=== PATIENT | female | born 1990 | race Caucasian/White ===

== ENCOUNTER 2017-03-30 16:14 | Emergency (ER) | payer SELFPAY ==
[2017-03-30 16:53] VITALS: BP 99/60
[2017-03-30] MEDS ORDERED: Ondansetron 4 MG/2 ML SDV IVPUSH ONE (17:02)
[2017-03-30] MEDS ORDERED: Sodium Chloride 0.9% 1,000 ML IV ONE (17:02)
--- NOTE | 2017-03-30 17:03 | EDM.PDOC ---
ED HPI GENERAL MEDICAL PROBLEM - General Chief Complaint: Gastrointestinal Problem Stated Complaint: PT VOMIT AND 12WKS Time Seen by Provider: 03/30/17 17:02 Source of Information: Reports: Patient - History of Present Illness INITIAL COMMENTS - FREE TEXT/NARRATIVE: HISTORY AND PHYSICAL: History of present illness: [] 27-year-old female at approximately 12 weeks by uncertain dates Patient presents with LMP in the beginning of January uncertain date, she is receive Zofran to the walk-in clinic with benefit, chest 2 home tests positive Is scheduled for OB care tomorrow No fever chills sweats no chest pain shortness breath headache dizziness or palpitation bowel or urine symptoms No vaginal pain discharge fluid leakage or low back pain no spotting or bleeding Review of systems: As per history of present illness and below otherwise all systems reviewed and negative. Past medical history: As per history of present illness and as reviewed below otherwise noncontributory. Surgical history: As per history of present illness and as reviewed below otherwise noncontributory. Social history: No reported history of drug or alcohol abuse. Family history: As per history of present illness and as reviewed below otherwise noncontributory. Physical exam: HEENT: Atraumatic, normocephalic, pupils reactive, negative for conjunctival pallor or scleral icterus, mucous membranes moist, throat clear, neck supple, nontender, trachea midline. Lungs: Clear to auscultation, breath sounds equal bilaterally, chest nontender. Heart: S1S2, regular, negative for clicks, rubs, or JVD. Abdomen: Soft, nondistended, nontender. Negative for masses or hepatosplenomegaly. Negative for costovertebral tenderness. Pelvis: Stable nontender. Genitourinary: Deferred. Rectal: Deferred. Extremities: Atraumatic, negative for cords or calf pain. Neurovascular unremarkable. Neuro: Awake, alert, oriented. Cranial nerves II through XII unremarkable. Cerebellum unremarkable. Motor and sensory unremarkable throughout. Exam nonfocal. Diagnostics: [] UA, hCG Therapeutics: [] 1 L normal saline bolus Zofran 8 mg IV Zofran 8 mg ODT every 8 when necessary #30 no refill vitamins recommended Followup with OB as scheduled tomorrow morning Impression: [] What is Definitive disposition and diagnosis as appropriate pending reevaluation and review of above. Headache Pain Score (Numeric/FACES): 10 - Related Data Allergies Allergy/AdvReac Type Severity Reaction Status Date / Time No Known Allergies Allergy Verified 03/30/17 16:50 Home Meds: Home Meds . [No Known Home Meds] 03/30/17 [History] Past Medical History - Past Health History Medical/Surgical History: Denies Medical/Surgical History Social & Family History - Family History Family Medical History: Noncontributory - Tobacco Use Smoking Status *Q: Former Smoker Used Tobacco, but Quit: No - Caffeine Use Caffeine Use: Reports: None - Recreational Drug Use Recreational Drug Use: No ED ROS GENERAL - Review of Systems Review Of Systems: ROS reveals no pertinent complaints other than HPI. ED EXAM, GENERAL - Physical Exam Exam: See Below Course - Vital Signs Last Recorded V/S: Last Vital Signs Temp 36.6 C 03/30/17 16:50 Pulse 101 H 03/30/17 16:50 Resp 16 03/30/17 16:50 BP 99/60 03/30/17 16:50 Pulse Ox 99 03/30/17 16:50 - Orders/Labs/Meds Orders: Active Orders 24 hr Category Date Time Status Sodium Chloride 0.9% [Normal Saline] 1,000 ml Med 03/30/17 17:02 Active IV STAT Medication Orders Sodium Chloride (Normal Saline) 1,000 mls @ 999 mls/hr IV STAT ONE Stop: 03/30/17 18:02 Last Admin: 03/30/17 17:53 Dose: 999 mls/hr Labs: Laboratory Tests 03/30/17 03/30/17 Range/Units 17:47 17:47 Urine Color YELLOW Urine Appearance CLOUDY Urine pH 6.5 (5.0-8.0) Ur Specific [place] 1.025 (1.001-1.035) Urine Protein NEGATIVE (NEGATIVE) mg/dL Urine Glucose (UA) NEGATIVE (NEGATIVE) mg/dL Urine Ketones NEGATIVE (NEGATIVE) mg/dL Urine Occult Blood TRACE-INTACT (NEGATIVE) Urine Nitrite NEGATIVE (NEGATIVE) Urine Bilirubin NEGATIVE (NEGATIVE) Urine Urobilinogen 1.0 (<2.0) EU/dL Ur Leukocyte Esterase MODERATE (NEGATIVE) Urine RBC 0-3 (0-2/HPF) Urine WBC 50-75 (0-5/HPF) Ur Epithelial Cells MODERATE (NONE-FEW) Urine Bacteria 1+ H (NEGATIVE) Urine Mucus LIGHT (NONE-MOD) Urine HCG, Qual POSITIVE (NEGATIVE) Meds: Medications Generic Name Dose Route Start Last Admin Trade Name Freq PRN Reason Stop Dose Admin Sodium Chloride 1,000 mls @ 999 mls/hr 03/30/17 17:02 03/30/17 17:53 Normal Saline IV 03/30/17 18:02 999 mls/hr STAT ONE Administration Discontinued Medications Generic Name Dose Route Start Last Admin Trade Name Freq PRN Reason Stop Dose Admin Ondansetron HCl 8 mg 03/30/17 17:02 03/30/17 17:54 Zofran IVPUSH 03/30/17 17:03 8 mg ONETIME ONE Administration Departure - Departure Time of Disposition: 18:00 Disposition: Home, Self-Care 01 Condition: good Clinical Impression: Vomiting of - Discharge Information Referrals: PCP,None [Primary Care Provider] - Forms: ED Department Discharge - My Orders Last 24 Hours: My Active Orders 03/30/17 17:02 Sodium Chloride 0.9% [Normal Saline] 1,000 ml IV STAT - Assessment/Plan Last 24 Hours: My Active Orders 03/30/17 17:02 Sodium Chloride 0.9% [Normal Saline] 1,000 ml IV STAT
== END 2017-03-30 19:08 | disposition home or self-care (01) ==
LOC: MW.ED 16:14
DX: O21.9 Vomiting of pregnancy, unspecified (principal); Z87.891 Personal history of nicotine dependence; Z3A.12 12 weeks gestation of pregnancy
CPT/HCPCS: 81001; 81025; 96361; 96374; 99283; J2405; J7040; 99284

== ENCOUNTER 2017-09-16 09:15 | Inpatient (IN) | payer OTHER, SELFPAY ==
[2017-09-16] MEDS: Lactated Ringers 1,000 ML IV SCH ×3 (09:15→17:45)
[2017-09-16] MEDS ORDERED: Nalbuphine 10 MG/1 ML Vial IVPUSH PRN (09:17)
[2017-09-16] MEDS ORDERED: Ondansetron 4 MG/2 ML SDV IV PRN (09:17)
[2017-09-16] MEDS ORDERED: Sodium Chloride 0.9% 2.5 ML Syringe FLUSH PRN (09:17)
[2017-09-16] MEDS ORDERED: Lidocaine 1% 50 ML MDV INJECT PRN (09:17)
[2017-09-16] MEDS ORDERED: Misoprostol 200 MCG Tab PO PRN (09:17)
[2017-09-16] MEDS ORDERED: Water For Irrigation,Sterile 1,000 ML Container IRR PRN (09:17)
[2017-09-16] MEDS ORDERED: Methylergonovine 0.2 MG/1 ML Amp IM PRN (09:17)
[2017-09-16] MEDS ORDERED: Sodium Chloride 0.9% 10 ML Syringe FLUSH PRN (09:17)
[2017-09-16] MEDS ORDERED: Carboprost Tromethamine 250 MCG/1 ML Amp IM PRN (09:17)
--- NOTE | 2017-09-16 09:27 | PCM.LDHP ---
L&D History of Present Illness - General Date of Service: 09/16/17 Admit Problem/Dx: Patient Status Order with Admit Dx/Problem 09/16/17 09:18 Patient Status [ADT] Routine Admission Diagnosis/Problem Admission Diagnosis/Problem 09/16/17 09:22 27 yo EDC 10/18/2017 35 3/7wks A+. RI, GBS unkwn, comes due to regular uterine contractions, SVE per RN 3-90/-1 BBOW. Source of Information: Patient History Limitations: Reports: No Limitations - History of Present Illness Introduction:: 27 yo EDC 10/18/2017 35 3/7wks A+. RI, GBS unkwn, comes due to regular uterine contractions, SVE per RN 3-90/-1 BBOW. Timing/Duration: Reports: minutes: Location, : Reports: Abdomen Severity: Severe Improves with: Reports: None Worsens with: Reports: None Associated Symptoms: Reports: N - Related Data Allergies/Adverse Reactions: Allergies Allergy/AdvReac Type Severity Reaction Status Date / Time No Known Allergies Allergy Verified 03/30/17 16:50 Home Medications: Home Meds . [No Known Home Meds] 03/30/17 [History] Past Medical History - Past Health History Medical/Surgical History: Denies Medical/Surgical History Social & Family History - Family History Family Medical History: Noncontributory - Tobacco Use Smoking Status *Q: Former Smoker Used Tobacco, but Quit: No - Caffeine Use Caffeine Use: Reports: None - Recreational Drug Use Recreational Drug Use: No H&P Review of Systems - Review of Systems: Review Of Systems: See Below General: Reports: No Symptoms HEENT: Reports: No Symptoms Pulmonary: Reports: No Symptoms Cardiovascular: Reports: No Symptoms Gastrointestinal: Reports: No Symptoms Genitourinary: Reports: No Symptoms Musculoskeletal: Reports: No Symptoms Skin: Reports: No Symptoms Psychiatric: Reports: No Symptoms Neurological: Reports: No Symptoms Hematologic/Lymphatic: Reports: No Symptoms Immunologic: Reports: No Symptoms L&D Exam - Exam Exam: See Below - Vital Signs Weight: 52.617 kg - OB Specific Contraction Intensity: Moderate to Strong Movement: Active Heart Tones: Present Heart Tones per Min: 140 Heart Rate (FHR) Variability: Moderate (6-25 bmp) Presentation: Vertex Estimated Weight: 3000 - Knight Score Knight Score Cervix Position: Anterior Knight Score Consistency: Soft Knight Score Effacement: >80% Knight Score Dilation: 3-4 cm Knight Score Infant's Station: -1 ,0 Knight Score Total: 11 - Exam General: Alert, Oriented, Cooperative HEENT: EACs Clear, EOMI, Hearing Intact, Mucosa Moist & [place] Lungs: Clear to Auscultation, Normal Respiratory Effort Cardiovascular: Regular Rate, Regular Rhythm GI/Abdominal Exam: Soft, Non-Tender, No Organomegaly, No Distention, No Abnormal Bruit, No Mass, Pelvis Stable Rectal Exam: Deferred Genitourinary: Normal bimanual exam, Cervical dilitation Back Exam: Full Range of Motion Extremities: Normal Inspection, Normal Range of Motion, Non-Tender, No Pedal Edema, Normal Capillary Refill Skin: Warm, Dry, Intact Neurological: Cranial Nerves Intact, Reflexes Equal Bilateral, Normal Speech, Normal Tone, Sensation Intact Psychiatric: Alert, Normal Affect, Normal Mood - Problem List (1) Supervision of normal IUP (intrauterine ) in primigravida SNOMED Code(s): 67484496, 482633169, 104852031 ICD Code: Z34.00 - ENCNTR FOR SUPRVSN OF NORMAL FIRST , UNSP TRIMESTER Status: Acute Priority: High Current Visit: Yes Qualifiers: Trimester: third trimester Qualified Code(s): Z34.03 - Encounter for supervision of normal first , third trimester (2) labor in third trimester SNOMED Code(s): 0298925 ICD Code: O60.03 - LABOR WITHOUT DELIVERY, THIRD TRIMESTER Status: Acute Priority: High Current Visit: Yes Qualifiers: labor delivery status: without delivery Qualified Code(s): O60.03 - labor without delivery, third trimester Problem List Initiated/Reviewed/Updated: Yes Orders Last 24hrs: Active Orders 24 hr Category Date Time Status Patient Status [ADT] Routine ADT 09/16/17 09:18 Ordered Heart Tones [RC] INTERMITTENT Care 09/16/17 09:18 Ordered Non Stress Test [RC] PER UNIT ROUTINE Care 09/16/17 09:18 Ordered May Shower [RC] ASDIRECTED Care 09/16/17 09:18 Ordered Notify Provider [RC] PRN Care 09/16/17 09:18 Ordered Up ad Vania [RC] ASDIRECTED Care 09/16/17 09:18 Ordered Vaginal Exam [RC] PRN Care 09/16/17 09:18 Ordered Vital Signs [RC] PER UNIT ROUTINE Care 09/16/17 09:18 Ordered Regular Diet [DIET] Diet 09/16/17 Lunch Ordered CBC W/O DIFF,HEMOGRAM [HEME] Routine Lab 09/16/17 09:18 Ordered TYPE AND SCREEN [BBK] Routine Lab 09/16/17 09:18 Ordered Acetaminophen [Tylenol] Med 09/16/17 09:17 Ordered 650 mg PO Q4H PRN Ampicillin 1 gm Med 09/16/17 09:30 Ordered Sodium Chloride 0.9% [Normal Saline] 50 ml IV Q4H Ampicillin 2 gm Med 09/16/17 09:17 Ordered Sodium Chloride 0.9% [Normal Saline] 100 ml IV ONETIME Carboprost Tromethamine [Hemabate DS] Med 09/16/17 09:17 Ordered 250 mcg IM ASDIRECTED PRN Lactated Ringers @ 150 MLS/HR(1000ml) Med 09/16/17 09:30 Ordered Lactated Ringers [Ringers, Lactated] 1,000 ml IV ASDIRECTED Lidocaine 1% [Xylocaine 1%] Med 09/16/17 09:17 Ordered 50 ml INJECT .ONCE PRN Methylergonovine [Methergine] Med 09/16/17 09:17 Ordered 0.2 mg IM ASDIRECTED PRN Misoprostol [Cytotec] Med 09/16/17 09:17 Ordered 200 mcg PO .ONCE PRN Nalbuphine [Nubain] Med 09/16/17 09:17 Ordered 10 mg IVPUSH Q1H PRN Ondansetron [Zofran] Med 09/16/17 09:17 Ordered 4 mg IV Q4H PRN Oxytocin/0.9 % Sodium Chloride [Oxytocin 30 Unit/500 ML Med 09/16/17 09:30 Ordered -NS] 30 unit in 500 ml IV TITRATE Sodium Chloride 0.9% [Saline Flush] Med 09/16/17 09:17 Ordered 10 ml FLUSH ASDIRECTED PRN Sodium Chloride 0.9% [Saline Flush] Med 09/16/17 09:17 Ordered 2.5 ml FLUSH ASDIRECTED PRN Water For Irrigation,Sterile [Sterile Water for Med 09/16/17 09:17 Ordered Irrigation] 1,000 ml IRR ASDIRECTED PRN Scalp Electrode [WOMSER] Per Unit Routine Oth 09/16/17 09:18 Ordered Peripheral IV Insertion Adult [OM.PC] Routine Oth 09/16/17 09:18 Ordered Resuscitation Status Routine Resus Stat 09/16/17 09:17 Ordered Assessment/Plan Comment:: Labor A: 27 yo EDC 10/18/2017 35 3/7wks A+. RI, GBS unkwn, comes due to regular uterine contractions, SVE per RN 3-4/90/-1 BBOW. P: Admit to L&D, GBS unwkn and will start antibiotics, may be out of bed if infant strip good, anticipate . Dr Ogden updated on pt status.
[2017-09-16] MEDS ORDERED: Oxytocin/0.9 % Sodium Chloride 30 UNIT/500 ML BAG IV SCH (09:30)
[2017-09-16] MEDS ORDERED: Ampicillin 2 GM in Sodium Chloride 0.9% 100 ML IV ONE (09:30)
[2017-09-16] MEDS: Acetaminophen 325 MG Tab PO PRN (13:08)
[2017-09-16] MEDS: Ampicillin 1 GM in Sodium Chloride 0.9% 50 ML IV SCH ×3 (13:39→21:37)
[2017-09-17] MEDS: Lactated Ringers 1,000 ML IV SCH ×3 (00:50→07:15)
[2017-09-17] MEDS ORDERED: Ropivacaine 0.2% 2 MG/ML 20 ML SDV ONE (01:09)
[2017-09-17] MEDS ORDERED: fentaNYL 100 MCG/2 ML SDV ONE (01:09)
[2017-09-17] MEDS ORDERED: Ropivacaine HCl/PF 100 ML ONE (01:09)
--- NOTE | 2017-09-17 01:42 | PCM.PREANE ---
Preanesthetic Assessment - Anesthesia/Transfusion/Family Hx Anesthesia History: No Prior Anesthesia Family History of Anesthesia Reaction: No - Review of Systems Other: Reports: None - Physical Assessment Height: 4 ft 10 in Weight: 52.617 kg ASA Class: 2 Mental Status: Alert & Oriented x3 Airway Class: Mallampati = 1 Dentition: Reports: Normal Dentition Thyro-Mental Finger Breadths: 3 Mouth Opening Finger Breadths: 3 ROM/Head Extension: Full - Lab Values: Laboratory Last Values WBC 8.20 K/uL (4.0-11.0) 09/16/17 09:23 RBC 3.53 M/uL (4.30-5.90) L 09/16/17 09:23 Hgb 10.5 g/dL (12.0-16.0) L 09/16/17 09:23 Hct 31.2 % (36.0-46.0) L 09/16/17 09:23 MCV 88.4 fL (80.0-98.0) 09/16/17 09:23 MCH 29.7 pg (27.0-32.0) 09/16/17 09:23 MCHC 33.7 g/dL (31.0-37.0) 09/16/17 09:23 RDW Std Deviation 41.6 fl (28.0-62.0) 09/16/17 09:23 RDW Coeff of Shayy 13 % (11.0-15.0) 09/16/17 09:23 Plt Count 268 K/uL (150-400) 09/16/17 09:23 MPV 9.30 fL (7.40-12.00) 09/16/17 09:23 Nucleated RBC % 0.0 /100WBC 09/16/17 09:23 Nucleated RBCs # 0 K/uL 09/16/17 09:23 Blood Type A POSITIVE 09/16/17 09:23 Antibody Screen NEGATIVE 09/16/17 09:23 - Allergies Allergies/Adverse Reactions: Allergies Allergy/AdvReac Type Severity Reaction Status Date / Time No Known Allergies Allergy Verified 03/30/17 16:50 - Blood Blood Available: Yes Product(s) Available: PRBC - Acknowledgements Anesthesia Type Planned: Epidural Pt an Appropriate Candidate for the Planned Anesthesia: Yes Alternatives and Risks of Anesthesia Discussed w Pt/Guardian: Yes Pt/Guardian Understands and Agrees with Anesthesia Plan: Yes PreAnesthesia Questionnaire - Past Health History Medical/Surgical History: Denies Medical/Surgical History - SUBSTANCE USE Smoking Status *Q: Former Smoker Tobacco Use Within Last Twelve Months: Cigarettes Recreational Drug Use History: No - HOME MEDS Home Medications: Home Meds . [No Known Home Meds] 03/30/17 [History] - CURRENT (IN HOUSE) MEDS Current Meds: Current Medications Acetaminophen (Tylenol) 650 mg PO Q4H PRN PRN Reason: mild pain and fever Last Admin: 09/16/17 13:08 Dose: 650 mg Carboprost Tromethamine (Hemabate Ds) 250 mcg IM ASDIRECTED PRN PRN Reason: Post Hemorrhage Ampicillin Sodium 1 gm/ Sodium (Chloride) 50 mls @ 100 mls/hr IV Q4H [facility] Last Admin: 09/16/17 21:37 Dose: 100 mls/hr Lactated Ringer's (Ringers, Lactated) 1,000 mls @ 150 mls/hr IV ASDIRECTED [facility] Last Admin: 09/16/17 17:45 Dose: 150 mls/hr Oxytocin/Sodium Chloride (Oxytocin 30 Unit/500 Ml-Ns) 30 unit in 500 mls @ 500 mls/hr IV TITRATE [facility] Lidocaine HCl (Xylocaine 1%) 50 ml INJECT .ONCE PRN PRN Reason: Laceration repair Methylergonovine Maleate (Methergine) 0.2 mg IM ASDIRECTED PRN PRN Reason: Post Hemorrhage Misoprostol (Cytotec) 200 mcg PO .ONCE PRN PRN Reason: Post Hemorrhage Nalbuphine HCl (Nubain) 10 mg IVPUSH Q1H PRN PRN Reason: Pain (severe 7-10) Last Admin: 09/16/17 10:57 Dose: 10 mg Ondansetron HCl (Zofran) 4 mg IV Q4H PRN PRN Reason: Nausea/Vomiting Last Admin: 09/16/17 17:41 Dose: 4 mg Sodium Chloride (Saline Flush) 10 ml FLUSH ASDIRECTED PRN PRN Reason: Keep Vein Open Sodium Chloride (Saline Flush) 2.5 ml FLUSH ASDIRECTED PRN PRN Reason: Keep Vein Open Sterile Water (Sterile Water For Irrigation) 1,000 ml IRR ASDIRECTED PRN PRN Reason: delivery Discontinued Medications Fentanyl (Sublimaze) Confirm Administered Dose 200 mcg .ROUTE .STK-MED ONE Stop: 09/17/17 01:10 Ampicillin Sodium 2 gm/ Sodium (Chloride) 100 mls @ 200 mls/hr IV ONETIME ONE Stop: 09/16/17 09:59 Last Admin: 09/16/17 09:30 Dose: 200 mls/hr Ropivacaine (Naropin 0.2%) Confirm Administered Dose 100 mls @ as directed .ROUTE .STK-MED ONE Stop: 09/17/17 01:10 Ropivacaine (Naropin 0.2%) Confirm Administered Dose 20 ml .ROUTE .STK-MED ONE Stop: 09/17/17 01:10
[2017-09-17] MEDS: Ampicillin 1 GM in Sodium Chloride 0.9% 50 ML IV SCH ×3 (01:46→09:30)
[2017-09-17] MEDS: Acetaminophen 325 MG Tab PO PRN (05:58)
[2017-09-17] MEDS ORDERED: Bisacodyl 10 MG Supp RECTAL PRN (10:10)
[2017-09-17] MEDS ORDERED: Benzocaine/Menthol 20%-0.5% Spray 78 GM Cannister TOP PRN (10:10)
[2017-09-17] MEDS ORDERED: Lanolin 100% Cream 7 GM Tube TOP PRN (10:10)
[2017-09-17] MEDS ORDERED: Ibuprofen 400 MG Tab PO PRN (10:10)
[2017-09-17] MEDS ORDERED: Acetaminophen 500 MG Tab PO PRN ×2 (10:10)
[2017-09-17] MEDS ORDERED: Witch Hazel Medicated Pads 40/Jar TOP PRN (10:10)
--- NOTE | 2017-09-17 10:16 | PCM.DEL ---
L & D Note - General Info Date of Service: 09/17/17 Mother's Due Date: 10/18/17 - Delivery Note Labor: Spontaneous Delivery Outcome: Livebirth Infant Delivery Method: Spontaneous Vaginal Delivery-Single Infant Delivery Mode: Spontaneous Presentation: Vertex Nuchal Cord: None Anesthesia Type: None Amniotic Fluid Description: Clear Episiotomy Type: None Laceration: None Placenta: Intact, Spontaneous Cord: 3 Vessels Estimated Blood Loss: 200 Resuscitation Needed: No Provider: Rosita Rhodes (At delivery) Score 1 min: 8 Score 5 min: 9 Second Stage Interventions: Reports: Pushing, Pulls Own Legs Back Delivery Comments (Free Text/Narrative):: of viable male over intact perineum at 35 4/7wks due to spont labor. Head delivered after much pushing, shoulders and body followed easily. to mother abdomen with Dr Rhodes at for evaluation, CC and cut and to warmer for further evaluation. Cord blood collected. Placenta delivered grossly intact with 3VC, Inspection noted intact perineum and small bilateral sidewall "skid noriega". Homeostatic and no repair needed. Bimanual normal. EBL 200cc, APGARS 8/9, Weight 4lb 14oz. Mother and left in stable condition for recovery. - General Info Date of Service: 09/17/17 Admission Dx/Problem (Free Text): Patient Status Order with Admit Dx/Problem 09/16/17 09:18 Patient Status [ADT] Routine Admission Diagnosis/Problem Admission Diagnosis/Problem 09/16/17 09:22 27 yo EDC 10/18/2017 35 3/7wks A+. RI, GBS unkwn, comes due to regular uterine contractions, SVE per RN 3-4/90/-1 BBOW. Functional Status: Reports: Pain Controlled - Review of Systems General: Reports: No Symptoms HEENT: Reports: No Symptoms Pulmonary: Reports: No Symptoms Cardiovascular: Reports: No Symptoms Gastrointestinal: Reports: No Symptoms Genitourinary: Reports: No Symptoms Musculoskeletal: Reports: No Symptoms Skin: Reports: No Symptoms Neurological: Reports: No Symptoms Psychiatric: Reports: No Symptoms - Patient Data Weight - Most Recent: 52.617 kg Lab Results Last 24 Hours: Laboratory Results - last 24 hr 09/16/17 Range/Units 09:23 Blood Type A POSITIVE Antibody Screen NEGATIVE Med Orders - Current: Current Medications Acetaminophen (Tylenol Extra Strength) 500 mg PO Q4H PRN PRN Reason: Pain Acetaminophen (Tylenol Extra Strength) 1,000 mg PO Q4H PRN PRN Reason: Pain Benzocaine/Menthol (Dermoplast Pain Relief 20%-0.5% [place]) 78 gm TOP ASDIRECTED PRN PRN Reason: Perineal Comfort Measure Bisacodyl (Dulcolax) 10 mg RECTAL .ONCE PRN PRN Reason: Constipation Docusate Sodium (Colace) 100 mg PO BID PRN PRN Reason: Constipation Emollient Ointment (Lansinoh Hpa) 0 gm TOP ASDIRECTED PRN PRN Reason: Sore Nipples Ibuprofen (Motrin) 400 mg PO Q4H PRN PRN Reason: Pain Ibuprofen (Motrin) 800 mg PO Q6H PRN PRN Reason: Pain Oxycodone HCl (Oxycodone) 5 mg PO Q2H PRN PRN Reason: Pain Discontinued Medications Acetaminophen (Tylenol) 650 mg PO Q4H PRN PRN Reason: mild pain and fever Last Admin: 09/17/17 05:58 Dose: 650 mg Carboprost Tromethamine (Hemabate Ds) 250 mcg IM ASDIRECTED PRN PRN Reason: Post Hemorrhage Fentanyl (Sublimaze) Confirm Administered Dose 200 mcg .ROUTE .STK-MED ONE Stop: 09/17/17 01:10 Ampicillin Sodium 1 gm/ Sodium (Chloride) 50 mls @ 100 mls/hr IV Q4H [facility] Last Admin: 09/17/17 09:30 Dose: 100 mls/hr Ampicillin Sodium 2 gm/ Sodium (Chloride) 100 mls @ 200 mls/hr IV ONETIME ONE Stop: 09/16/17 09:59 Last Admin: 09/16/17 09:30 Dose: 200 mls/hr Lactated Ringer's (Ringers, Lactated) 1,000 mls @ 150 mls/hr IV ASDIRECTED [facility] Last Admin: 09/17/17 07:15 Dose: 150 mls/hr Oxytocin/Sodium Chloride (Oxytocin 30 Unit/500 Ml-Ns) 30 unit in 500 mls @ 500 mls/hr IV TITRATE [facility] Ropivacaine (Naropin 0.2%) Confirm Administered Dose 100 mls @ as directed .ROUTE .STK-MED ONE Stop: 09/17/17 01:10 Lidocaine HCl (Xylocaine 1%) 50 ml INJECT .ONCE PRN PRN Reason: Laceration repair Methylergonovine Maleate (Methergine) 0.2 mg IM ASDIRECTED PRN PRN Reason: Post Hemorrhage Misoprostol (Cytotec) 200 mcg PO .ONCE PRN PRN Reason: Post Hemorrhage Nalbuphine HCl (Nubain) 10 mg IVPUSH Q1H PRN PRN Reason: Pain (severe 7-10) Last Admin: 09/16/17 10:57 Dose: 10 mg Ondansetron HCl (Zofran) 4 mg IV Q4H PRN PRN Reason: Nausea/Vomiting Last Admin: 09/16/17 17:41 Dose: 4 mg Ropivacaine (Naropin 0.2%) Confirm Administered Dose 20 ml .ROUTE .[employer] ONE Stop: 09/17/17 01:10 Sodium Chloride (Saline Flush) 10 ml FLUSH ASDIRECTED PRN PRN Reason: Keep Vein Open Sodium Chloride (Saline Flush) 2.5 ml FLUSH ASDIRECTED PRN PRN Reason: Keep Vein Open Sterile Water (Sterile Water For Irrigation) 1,000 ml IRR ASDIRECTED PRN PRN Reason: delivery - Exam General: Alert, Oriented, Cooperative, No Acute Distress Lungs: Normal Respiratory Effort GI/Abdominal Exam: Soft, Non-Tender (Female) Exam: Normal External Exam, Normal Bimanual Exam, Vaginal Bleeding Back Exam: Full Range of Motion Extremities: Normal Range of Motion, Non-Tender, No Pedal Edema, Normal Capillary Refill Skin: Warm, Dry, Intact Wound/Incisions: Healing Well Neurological: No New Focal Deficit, Normal Speech, Normal Tone Psy/Mental Status: Alert, Normal Affect, Normal Mood - Problem List & Annotations (1) Supervision of normal IUP (intrauterine ) in primigravida SNOMED Code(s): 75568776, 088758722, 911161232 Code(s): Z34.00 - ENCNTR FOR SUPRVSN OF NORMAL FIRST , UNSP TRIMESTER Status: Acute Priority: High Current Visit: Yes Qualifiers: Trimester: third trimester Qualified Code(s): Z34.03 - Encounter for supervision of normal first , third trimester (2) labor in third trimester SNOMED Code(s): 8681981 Code(s): O60.03 - LABOR WITHOUT DELIVERY, THIRD TRIMESTER Status: Acute Priority: High Current Visit: Yes Qualifiers: labor delivery status: without delivery Qualified Code(s): O60.03 - labor without delivery, third trimester (3) (normal spontaneous vaginal delivery) SNOMED Code(s): 00137888 Code(s): O80 - ENCOUNTER FOR FULL-TERM UNCOMPLICATED DELIVERY Status: Acute Priority: High Current Visit: Yes - Problem List Review Problem List Initiated/Reviewed/Updated: Yes - My Orders Last 24 Hours: My Active Orders 09/16/17 09:18 Heart Tones [RC] INTERMITTENT Non Stress Test [RC] PER UNIT ROUTINE May Shower [RC] ASDIRECTED Notify Provider [RC] PRN Up ad Vania [RC] ASDIRECTED Vaginal Exam [RC] PRN Vital Signs [RC] PER UNIT ROUTINE 09/17/17 10:10 May Shower [RC] ASDIRECTED Up ad Vania [RC] ASDIRECTED Vital Signs [RC] PER UNIT ROUTINE Acetaminophen [Tylenol Extra Strength] 1,000 mg PO Q4H PRN Acetaminophen [Tylenol Extra Strength] 500 mg PO Q4H PRN Benzocaine/Menthol [Dermoplast Pain Relief 20%-0.5% [place]] 78 gm TOP ASDIRECTED PRN Bisacodyl [Dulcolax] 10 mg RECTAL .ONCE PRN Docusate Sodium [Colace] 100 mg PO BID PRN Ibuprofen [Motrin] 400 mg PO Q4H PRN Ibuprofen [Motrin] 800 mg PO Q6H PRN Lanolin [Lansinoh HPA] See Dose Instructions TOP ASDIRECTED PRN Witch Naty [Tucks] 1 pad TOP ASDIRECTED PRN oxyCODONE 5 mg PO Q2H PRN Assess Lochia [WOMSER] Per Unit Routine Assess Uterine Involution [WOMSER] Per Unit Routine Peripheral IV Discontinue [OM.PC] Routine Resuscitation Status Routine 09/17/17 10:11 Patient Status [ADT] Routine 09/17/17 Lunch Regular Diet [DIET] - Assessment Assessment:: of viable male over intact perineum. EBL 200cc. APGARS 8/9, Wt: 4lb 14oz. Mother and baby stable - Plan Plan:: Labor A: 27 yo EDC 10/18/2017 35 3/7wks A+. RI, GBS unkwn, comes due to regular uterine contractions, SVE per RN 3-4/90/-1 BBOW. P: Admit to L&D, GBS unwkn and will start antibiotics, may be out of bed if infant strip good, anticipate . Dr Ogden updated on pt status. Delivery: P: routine pp plan of care
[2017-09-17] MEDS: Ibuprofen 800 MG Tab PO PRN ×2 (13:03→19:54)
--- NOTE | 2017-09-17 13:56 | PCM48HPAN ---
Post Anesthesia Note - EVALUATION WITHIN 48HRS OF ANESTHETIC Vital Signs in Normal Range: Yes Patient Participated in Evaluation: Yes Respiratory Function Stable: Yes Airway Patent: Yes Cardiovascular Function Stable: Yes Hydration Status Stable: Yes Pain Control Satisfactory: Yes Nausea and Vomiting Control Satisfactory: Yes Mental Status Recovered: Yes
[2017-09-17] MEDS: oxyCODONE 5 MG Tab PO PRN ×2 (19:53→23:14)
[2017-09-17] MEDS: Docusate Sodium 100 MG Cap PO PRN (19:54)
[2017-09-18] MEDS: oxyCODONE 5 MG Tab PO PRN ×4 (03:26→23:45)
--- NOTE | 2017-09-18 13:10 | PCM.PNPP ---
- General Info Date of Service: 09/18/17 Admission Dx/Problem (Free Text): Patient Status Order with Admit Dx/Problem 09/16/17 09:18 Patient Status [ADT] Routine Admission Diagnosis/Problem Admission Diagnosis/Problem 09/16/17 09:22 27 yo EDC 10/18/2017 35 3/7wks A+. RI, GBS unkwn, comes due to regular uterine contractions, SVE per RN 3-4/90/-1 BBOW. Functional Status: Reports: Pain Controlled, Tolerating Diet, Ambulating, Urinating - Review of Systems General: Reports: No Symptoms HEENT: Reports: No Symptoms Pulmonary: Reports: No Symptoms Cardiovascular: Reports: No Symptoms Gastrointestinal: Reports: No Symptoms Genitourinary: Reports: No Symptoms Musculoskeletal: Reports: No Symptoms Skin: Reports: No Symptoms Neurological: Reports: No Symptoms Psychiatric: Reports: No Symptoms - Patient Data Vital Signs - Most Recent: Last Vital Signs Temp 36.9 C 09/18/17 09:00 Pulse 72 09/18/17 09:00 Resp 16 09/18/17 09:00 BP 122/70 09/18/17 09:00 Pulse Ox 100 09/18/17 09:00 Weight - Most Recent: 52.617 kg Med Orders - Current: Current Medications Acetaminophen (Tylenol Extra Strength) 500 mg PO Q4H PRN PRN Reason: Pain Acetaminophen (Tylenol Extra Strength) 1,000 mg PO Q4H PRN PRN Reason: Pain Benzocaine/Menthol (Dermoplast Pain Relief 20%-0.5% [place]) 78 gm TOP ASDIRECTED PRN PRN Reason: Perineal Comfort Measure Last Admin: 09/17/17 13:18 Dose: 1 canister Bisacodyl (Dulcolax) 10 mg RECTAL .ONCE PRN PRN Reason: Constipation Docusate Sodium (Colace) 100 mg PO BID PRN PRN Reason: Constipation Last Admin: 09/17/17 19:54 Dose: 100 mg Emollient Ointment (Lansinoh Hpa) 0 gm TOP ASDIRECTED PRN PRN Reason: Sore Nipples Last Admin: 09/17/17 19:55 Dose: 1 applicful Ibuprofen (Motrin) 400 mg PO Q4H PRN PRN Reason: Pain Ibuprofen (Motrin) 800 mg PO Q6H PRN PRN Reason: Pain Last Admin: 09/17/17 19:54 Dose: 800 mg Oxycodone HCl (Oxycodone) 5 mg PO Q2H PRN PRN Reason: Pain Last Admin: 09/18/17 11:59 Dose: 5 mg Witch Naty (Tucks) 1 pad TOP ASDIRECTED PRN PRN Reason: comfort care Last Admin: 09/17/17 13:18 Dose: 1 tub Discontinued Medications Acetaminophen (Tylenol) 650 mg PO Q4H PRN PRN Reason: mild pain and fever Last Admin: 09/17/17 05:58 Dose: 650 mg Carboprost Tromethamine (Hemabate Ds) 250 mcg IM ASDIRECTED PRN PRN Reason: Post Hemorrhage Fentanyl (Sublimaze) Confirm Administered Dose 200 mcg .ROUTE .STK-MED ONE Stop: 09/17/17 01:10 Ampicillin Sodium 1 gm/ Sodium (Chloride) 50 mls @ 100 mls/hr IV Q4H [facility] Last Admin: 09/17/17 09:30 Dose: 100 mls/hr Ampicillin Sodium 2 gm/ Sodium (Chloride) 100 mls @ 200 mls/hr IV ONETIME ONE Stop: 09/16/17 09:59 Last Admin: 09/16/17 09:30 Dose: 200 mls/hr Lactated Ringer's (Ringers, Lactated) 1,000 mls @ 150 mls/hr IV ASDIRECTED [facility] Last Admin: 09/17/17 07:15 Dose: 150 mls/hr Oxytocin/Sodium Chloride (Oxytocin 30 Unit/500 Ml-Ns) 30 unit in 500 mls @ 500 mls/hr IV TITRATE [facility] Last Admin: 09/17/17 09:59 Dose: 500 mls/hr Ropivacaine (Naropin 0.2%) Confirm Administered Dose 100 mls @ as directed .ROUTE .STK-MED ONE Stop: 09/17/17 01:10 Lidocaine HCl (Xylocaine 1%) 50 ml INJECT .ONCE PRN PRN Reason: Laceration repair Methylergonovine Maleate (Methergine) 0.2 mg IM ASDIRECTED PRN PRN Reason: Post Hemorrhage Misoprostol (Cytotec) 200 mcg PO .ONCE PRN PRN Reason: Post Hemorrhage Nalbuphine HCl (Nubain) 10 mg IVPUSH Q1H PRN PRN Reason: Pain (severe 7-10) Last Admin: 09/16/17 10:57 Dose: 10 mg Ondansetron HCl (Zofran) 4 mg IV Q4H PRN PRN Reason: Nausea/Vomiting Last Admin: 09/16/17 17:41 Dose: 4 mg Ropivacaine (Naropin 0.2%) Confirm Administered Dose [address]-MED ONE Stop: 09/17/17 01:10 Sodium Chloride (Saline Flush) 10 ml FLUSH ASDIRECTED PRN PRN Reason: Keep Vein Open Sodium Chloride (Saline Flush) 2.5 ml FLUSH ASDIRECTED PRN PRN Reason: Keep Vein Open Sterile Water (Sterile Water For Irrigation) 1,000 ml IRR ASDIRECTED PRN PRN Reason: delivery - Infant Interaction Infant Disposition, : to Nursery Infant Interaction: To Nursery to Visit Infant Infant Feeding: Breastfed Infant; Nursed Well Support Person: - Recovery Exam Fundal Tone: Firm Fundal Level: 1 Fingerbreadths Below Umbilicus Fundal Placement: Midline Lochia Amount: Scant Lochia Color: Rubra/Red Perineum Description: Intact, Minimal Bruising/Swelling Bladder Status: Voiding - Exam General: Alert, Oriented, Cooperative, No Acute Distress Lungs: Normal Respiratory Effort GI/Abdominal Exam: Soft, Non-Tender Extremities: Normal Range of Motion, Non-Tender, No Pedal Edema, Normal Capillary Refill Skin: Warm, Dry, Intact Wound/Incisions: Healing Well Neurological: No New Focal Deficit, Normal Gait, Normal Speech, Normal Tone Psy/Mental Status: Alert, Normal Affect, Normal Mood - Problem List & Annotations (1) Supervision of normal IUP (intrauterine ) in primigravida SNOMED Code(s): 51406936, 463813395, 732141297 Code(s): Z34.00 - ENCNTR FOR SUPRVSN OF NORMAL FIRST , UNSP TRIMESTER Status: Acute Priority: High Current Visit: Yes Qualifiers: Trimester: third trimester Qualified Code(s): Z34.03 - Encounter for supervision of normal first , third trimester (2) labor in third trimester SNOMED Code(s): 0066007 Code(s): O60.03 - LABOR WITHOUT DELIVERY, THIRD TRIMESTER Status: Acute Priority: High Current Visit: Yes Qualifiers: labor delivery status: without delivery Qualified Code(s): O60.03 - labor without delivery, third trimester (3) (normal spontaneous vaginal delivery) SNOMED Code(s): 06183026 Code(s): O80 - ENCOUNTER FOR FULL-TERM UNCOMPLICATED DELIVERY Status: Acute Priority: High Current Visit: Yes - Problem List Review Problem List Initiated/Reviewed/Updated: Yes - Assessment Assessment:: of viable male over intact perineum. EBL 200cc. APGARS 8/9, Wt: 4lb 14oz. Mother and baby stable Delivery VSS, AF, lochia small. No voiced complaints. to nursery for bili lights. - Plan Plan:: Labor A: 27 yo EDC 10/18/2017 35 3/7wks A+. RI, GBS unkwn, comes due to regular uterine contractions, SVE per RN 3-4/90/-1 BBOW. P: Admit to L&D, GBS unwkn and will start antibiotics, may be out of bed if strip good, anticipate . Dr Ogden updated on pt status. Delivery: P: routine pp plan of care PP day 1 continue routine pp plan of care.
[2017-09-18] MEDS ORDERED: Hydrocortisone 2.5% Crm 30 GM Tube TOP PRN (19:47)
[2017-09-18] MEDS: Docusate Sodium 100 MG Cap PO PRN (23:45)
--- NOTE | 2017-09-19 08:25 | PCM.DCSUM1 ---
Discharge Summary - Hospital Course Free Text/Narrative:: Discharge home. Follow up 6 weeks for post visit or sooner if needed. - Discharge Data Discharge Date: 09/19/17 Discharge Disposition: Home, Self-Care 01 Condition: Good - Discharge Diagnosis/Problem(s) (1) Supervision of normal IUP (intrauterine ) in primigravida SNOMED Code(s): 18015001, 762394884, 955481608 ICD Code: Z34.00 - ENCNTR FOR SUPRVSN OF NORMAL FIRST , UNSP TRIMESTER Status: Acute Priority: High Current Visit: Yes Qualifiers: Trimester: third trimester Qualified Code(s): Z34.03 - Encounter for supervision of normal first , third trimester (2) labor in third trimester SNOMED Code(s): 7306803 ICD Code: O60.03 - LABOR WITHOUT DELIVERY, THIRD TRIMESTER Status: Acute Priority: High Current Visit: Yes Qualifiers: labor delivery status: without delivery Qualified Code(s): O60.03 - labor without delivery, third trimester (3) (normal spontaneous vaginal delivery) SNOMED Code(s): 50291773 ICD Code: O80 - ENCOUNTER FOR FULL-TERM UNCOMPLICATED DELIVERY Status: Acute Priority: High Current Visit: Yes - Patient Instructions Diet: Usual Diet as Tolerated Activity: As Tolerated, Rest and Relax Today Driving: May Drive Today Showering/Bathing: May Shower Notify Provider of: Fever, Increased Pain, Swelling and Redness, Nausea and/or Vomiting Other/Special Instructions: Discharge home. Follow up 6 weeks for post visit or sooner if needed. - Discharge Plan Home Medications: Home Meds . [No Known Home Meds] 03/30/17 [History] Referrals: [facility] [Outside] Agueda Gonzalez CNM [Mid-] - 10/28/17 10:45 am - General Info Date of Service: 09/19/17 Admission Dx/Problem (Free Text: Patient Status Order with Admit Dx/Problem 09/16/17 09:18 Patient Status [ADT] Routine Admission Diagnosis/Problem Admission Diagnosis/Problem 09/16/17 09:22 27 yo EDC 10/18/2017 35 3/7wks A+. RI, GBS unkwn, comes due to regular uterine contractions, SVE per RN 3-4/90/-1 BBOW. Functional Status: Reports: Pain Controlled, Tolerating Diet, Ambulating, Urinating - Review of Systems General: Reports: No Symptoms HEENT: Reports: No Symptoms Pulmonary: Reports: No Symptoms Cardiovascular: Reports: No Symptoms Gastrointestinal: Reports: No Symptoms Genitourinary: Reports: No Symptoms Musculoskeletal: Reports: No Symptoms Skin: Reports: No Symptoms Neurological: Reports: No Symptoms Psychiatric: Reports: No Symptoms - Patient Data Vitals - Most Recent: Last Vital Signs Temp 36.9 C 09/19/17 05:05 Pulse 80 09/19/17 05:05 Resp 16 09/19/17 05:05 BP 120/60 09/19/17 05:05 Pulse Ox 100 09/19/17 05:05 Weight - Most Recent: 52.617 kg Med Orders - Current: Current Medications Acetaminophen (Tylenol Extra Strength) 500 mg PO Q4H PRN PRN Reason: Pain Acetaminophen (Tylenol Extra Strength) 1,000 mg PO Q4H PRN PRN Reason: Pain Last Admin: 09/18/17 23:45 Dose: 1,000 mg Benzocaine/Menthol (Dermoplast Pain Relief 20%-0.5% [place]) 78 gm TOP ASDIRECTED PRN PRN Reason: Perineal Comfort Measure Last Admin: 09/17/17 13:18 Dose: 1 canister Bisacodyl (Dulcolax) 10 mg RECTAL .ONCE PRN PRN Reason: Constipation Docusate Sodium (Colace) 100 mg PO BID PRN PRN Reason: Constipation Last Admin: 09/18/17 23:45 Dose: 100 mg Emollient Ointment (Lansinoh Hpa) 0 gm TOP ASDIRECTED PRN PRN Reason: Sore Nipples Last Admin: 09/17/17 19:55 Dose: 1 applicful Hydrocortisone (Proctozone-Hc 2.5% Crm) 0 gm TOP ASDIRECTED PRN PRN Reason: Itching Last Admin: 09/18/17 23:45 Dose: 1 tube Ibuprofen (Motrin) 400 mg PO Q4H PRN PRN Reason: Pain Ibuprofen (Motrin) 800 mg PO Q6H PRN PRN Reason: Pain Last Admin: 09/17/17 19:54 Dose: 800 mg Oxycodone HCl (Oxycodone) 5 mg PO Q2H PRN PRN Reason: Pain Last Admin: 09/18/17 23:45 Dose: 5 mg Witch Naty (Tucks) 1 pad TOP ASDIRECTED PRN PRN Reason: comfort care Last Admin: 09/17/17 13:18 Dose: 1 tub Discontinued Medications Acetaminophen (Tylenol) 650 mg PO Q4H PRN PRN Reason: mild pain and fever Last Admin: 09/17/17 05:58 Dose: 650 mg Carboprost Tromethamine (Hemabate Ds) 250 mcg IM ASDIRECTED PRN PRN Reason: Post Hemorrhage Fentanyl (Sublimaze) Confirm Administered Dose 200 mcg .ROUTE .STK-MED ONE Stop: 09/17/17 01:10 Ampicillin Sodium 1 gm/ Sodium (Chloride) 50 mls @ 100 mls/hr IV Q4H [facility] Last Admin: 09/17/17 09:30 Dose: 100 mls/hr Ampicillin Sodium 2 gm/ Sodium (Chloride) 100 mls @ 200 mls/hr IV ONETIME ONE Stop: 09/16/17 09:59 Last Admin: 09/16/17 09:30 Dose: 200 mls/hr Lactated Ringer's (Ringers, Lactated) 1,000 mls @ 150 mls/hr IV ASDIRECTED [facility] Last Admin: 09/17/17 07:15 Dose: 150 mls/hr Oxytocin/Sodium Chloride (Oxytocin 30 Unit/500 Ml-Ns) 30 unit in 500 mls @ 500 mls/hr IV TITRATE [facility] Last Admin: 09/17/17 09:59 Dose: 500 mls/hr Ropivacaine (Naropin 0.2%) Confirm Administered Dose 100 mls @ as directed .ROUTE .STK-MED ONE Stop: 09/17/17 01:10 Lidocaine HCl (Xylocaine 1%) 50 ml INJECT .ONCE PRN PRN Reason: Laceration repair Methylergonovine Maleate (Methergine) 0.2 mg IM ASDIRECTED PRN PRN Reason: Post Hemorrhage Misoprostol (Cytotec) 200 mcg PO .ONCE PRN PRN Reason: Post Hemorrhage Nalbuphine HCl (Nubain) 10 mg IVPUSH Q1H PRN PRN Reason: Pain (severe 7-10) Last Admin: 09/16/17 10:57 Dose: 10 mg Ondansetron HCl (Zofran) 4 mg IV Q4H PRN PRN Reason: Nausea/Vomiting Last Admin: 09/16/17 17:41 Dose: 4 mg Ropivacaine (Naropin 0.2%) Confirm Administered Dose 20 ml .ROUTE .[facility]-MED ONE Stop: 09/17/17 01:10 Sodium Chloride (Saline Flush) 10 ml FLUSH ASDIRECTED PRN PRN Reason: Keep Vein Open Sodium Chloride (Saline Flush) 2.5 ml FLUSH ASDIRECTED PRN PRN Reason: Keep Vein Open Sterile Water (Sterile Water For Irrigation) 1,000 ml IRR ASDIRECTED PRN PRN Reason: delivery - Exam General: Reports: Alert, Oriented, Cooperative, No Acute Distress Lungs: Reports: Normal Respiratory Effort GI/Abdominal Exam: Soft, Non-Tender (Female) Exam: Vaginal Bleeding Rectal (Female) Exam: Deferred Back Exam: Reports: Full Range of Motion Extremities: Normal Range of Motion, Non-Tender, No Pedal Edema, Normal Capillary Refill Skin: Reports: Warm, Dry, Intact Wound/Incisions: Reports: Healing Well Neurological: Reports: No New Focal Deficit, Normal Gait, Normal Speech, Normal Tone Psy/Mental Status: Reports: Alert, Normal Affect, Normal Mood *Q Meaningful Use (DIS) - VTE *Q VTE Criteria *Q: - Stroke *Q Stroke Criteria *Q: - AMI *Q AMI Criteria *Q:
[2017-09-19] MEDS: oxyCODONE 5 MG Tab PO PRN (10:00)
[2017-09-19 10:23] VITALS: BP 109/74
== END 2017-09-19 11:00 | disposition home or self-care (01) | DRG 775 ==
LOC: MW.OBCHECK 09:15 → MW.OB 09:16 → OBSVTOIN 09-17 09:56 → MW.OB 09-17 17:22
PROVIDERS: ADMIT Obstetrics & Gynecology; ATTEND Advanced Practice Midwife
PROC: 10E0XZZ Delivery of Products of Conception, External Approach (ICD-10-PCS; principal; 2017-09-17)
DX: O60.14X0 Preterm labor third trimester with preterm delivery third trimester, not applicable or unspecified (principal); Z3A.35 35 weeks gestation of pregnancy; Z37.0 Single live birth
CPT/HCPCS: 36415; 51702; 59025; 59409; 85027; 86850; 86900; 86901; A9270-GY; J0290; J2300; J2405; J2590; J7030; J7050; J7120

== ENCOUNTER 2017-12-12 16:01 | Emergency (ER) | payer OTHER, SELFPAY ==
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
[2017-12-12 17:46] VITALS: BP 119/83
--- NOTE | 2017-12-15 10:38 | CR ---
EXAM DATE: 12/12/17 PATIENT'S AGE: 27 Patient: AGUSTIN SWIFT Facility: [place], [place] Site . Site : 1990 Study: XRay Spine Lumbar [id number]/2/2018 5:02:06 PM Ordering Physician: Doctor Harvey Final Report: INDICATION: pain x5 hrs INDICATION: Back pain. TECHNIQUE: Three view. FINDINGS: The intervertebral disc space are well maintained. Alignment is preserved on frontal and lateral imaging. No acute fracture or dislocation is identified of the lumbar spine. SI joints are symmetric and within normal limits. IMPRESSION: No fracture, dislocation, significant degenerative change is identified of the lumbar spine. Dictated by Roberto Castro MD @ 12/12/2017 5:09:55 PM Dictated by: Roberto Castro MD @ 12/12/2017 17:10:02 (Electronic Signature) Report Signed by Proxy. ROMAN
== END 2017-12-12 18:21 | disposition home or self-care (01) ==
LOC: MW.ED 16:01
DX: S00.81XA Abrasion of other part of head, initial encounter (principal); M54.5 Low back pain; Z87.891 Personal history of nicotine dependence; Y04.0XXA Assault by unarmed brawl or fight, initial encounter
CPT/HCPCS: 72100; 72100-26; 99283; 99284

== ENCOUNTER 2022-11-13 12:48 | Emergency (ER) | payer SELFPAY ==
[2022-11-13] MEDS ORDERED: Sodium Chloride 0.9% 1,000 ML IV ONE (17:38)
[2022-11-13] MEDS ORDERED: Ondansetron 4 MG/2 ML SDV IVPUSH ONE (17:38)
[2022-11-13] MEDS ORDERED: Sodium Chloride 0.9% 2.5 ML Syringe FLUSH PRN (17:38)
[2022-11-13] MEDS ORDERED: Sodium Chloride 0.9% 10 ML Syringe FLUSH PRN (17:38)
[2022-11-13 18:40] LABS: CARBON DIOXIDE,CO2 25.1 mmol/L (21.0-32.0); POTASSIUM,K 3.6 mmol/L (3.5-5.1)
[2022-11-13] MEDS ORDERED: Amoxicillin/Clavulanate K 875-125 MG Tab PO ONE (20:34)
[2022-11-13 20:43] VITALS: BP 112/71; PULSE 78
== END 2022-11-13 20:44 | disposition home or self-care (01) ==
LOC: MW.ED 12:48
DX: O23.41 Unspecified infection of urinary tract in pregnancy, first trimester (principal); O21.9 Vomiting of pregnancy, unspecified; Z3A.01 Less than 8 weeks gestation of pregnancy
CPT/HCPCS: 36415; 76801; 80053; 81001; 81025; 83690; 84484; 85025; 93005; 96361; 96374; 99284; A9270; J2405; J3490; J7030; 93010

== ENCOUNTER 2023-06-12 06:51 | Inpatient (IN) | payer SELFPAY ==
[2023-06-12] MEDS ORDERED: Water For Irrigation,Sterile 1,000 ML Container IRR PRN (07:56)
[2023-06-12] MEDS ORDERED: Tranexamic Acid 1,000 MG in Sodium Chloride 0.9% 100 ML IV PRN (07:56)
[2023-06-12] MEDS ORDERED: Carboprost Tromethamine 250 MCG/1 mL Vial IM PRN (07:56)
[2023-06-12] MEDS ORDERED: Sodium Chloride 0.9% 2.5 ML Syringe FLUSH PRN (07:56)
[2023-06-12] MEDS ORDERED: Lidocaine 1% 50 ML MDV INJECT PRN (07:56)
[2023-06-12] MEDS ORDERED: Misoprostol 200 MCG Tab PO PRN (07:56)
[2023-06-12] MEDS ORDERED: Methylergonovine 0.2 MG/1 ML Amp IM PRN (07:56)
[2023-06-12] MEDS ORDERED: Sodium Chloride 0.9% 10 ML Syringe FLUSH PRN (07:56)
[2023-06-12] MEDS ORDERED: Butorphanol 1 MG/ML SDV IVPUSH PRN (07:56)
[2023-06-12] MEDS ORDERED: Sodium Chloride 0.9% 20 ML SDV IV PRN (07:56)
[2023-06-12] MEDS ORDERED: Ondansetron 4 MG/2 ML SDV IVPUSH ONE (07:57)
[2023-06-12] MEDS ORDERED: Oxytocin/0.9 % Sodium Chloride 30 UNIT/500 ML BAG IV SCH ×2 (08:00→16:15)
[2023-06-12] MEDS ORDERED: Lactated Ringers 1,000 ML IV SCH (08:00)
[2023-06-12] MEDS ORDERED: Nalbuphine HCl 10 MG/ 1ML Amp IVPUSH ONE (08:25)
[2023-06-12 08:26] LABS: APPEARANCE,URINE CLEAR; BILIRUBIN,URINE NEGATIVE (NEGATIVE); COLOR,URINE YELLOW; GLUCOSE,URINE NEGATIVE (NEGATIVE); KETONES,URINE NEGATIVE (NEGATIVE); LEUKOCYTE ESTERASE,URINE SMALL (NEGATIVE); NITRITE,URINE NEGATIVE (NEGATIVE); OCCULT BLOOD,URINE TRACE-INTACT (NEGATIVE); PROTEIN,URINE NEGATIVE (NEGATIVE); UROBILINOGEN,URINE 0.2 EU/dL (<2.0)
[2023-06-12] MEDS ORDERED: ePHEDrine 50 MG/ML SDV IVPUSH PRN ×2 (08:36)
[2023-06-12] MEDS ORDERED: Phenylephrine HCl 0.5 MG/5 ML AMP IVPUSH PRN (08:36)
[2023-06-12] MEDS ORDERED: Ropivacaine HCl/PF 400 MG in Premix Bag 1 BAG EPIDUR SCH (08:45)
[2023-06-12 08:53] LABS: HEMATOCRIT 36.6 % (36.0-46.0); HEMOGLOBIN 12.2 g/dL (12.0-16.0); MEAN CORPUSCULAR HEMOGLOBIN 28.9 pg (27.0-32.0); MEAN CORPUSCULAR HGB CONC 33.3 g/dL (31.0-37.0); MEAN CORPUSCULAR VOLUME 86.7 fL (80.0-98.0); MEAN PLATELET VOLUME 9.5 fL (7.40-12.00); RED BLOOD CELL COUNT 4.22 M/uL (4.30-5.90); WHITE BLOOD CELL COUNT,WBC 8.72 K/uL (4.0-11.0)
[2023-06-12 10:42] LABS: AMPHETAMINES SCREEN, URINE NEGATIVE (CUTOFF=500); BARBITURATE SCREEN,URINE NEGATIVE (CUTOFF=200); BENZODIAZEPINES SCREEN,URINE NEGATIVE (CUTOFF=150); BUPRENORPHINE SCREEN,URINE NEGATIVE (CUTOFF=10); METHADONE SCREEN, URINE NEGATIVE (CUTOFF=200); METHAMPHETAMINES SCREEN, URINE NEGATIVE (CUTOFF=500); OXYCODONE SCREEN,URINE NEGATIVE (CUT0FF=100); PCP SCREEN,URINE NEGATIVE (CUTOFF=25); PROPOXYPHENE SCREEN,URINE NEGATIVE (CUTOFF=300); THC SCREEN,URINE 20 NG/ML NEGATIVE (CUTOFF=50)
[2023-06-12] MEDS ORDERED: Terbutaline 1 MG/ML SDV SUBCUT PRN (16:03)
[2023-06-12] MEDS ORDERED: Misoprostol 25 MCG (1/4 of 100 MCG) Tab VAG PRN ×2 (16:03)
[2023-06-12] MEDS ORDERED: Acetaminophen 500 MG Tab PO ONE (18:47)
[2023-06-12] MEDS ORDERED: Ibuprofen 400 MG Tab PO PRN (20:33)
[2023-06-12] MEDS ORDERED: Witch Hazel Medicated Pads 40/Jar TOP PRN (20:33)
[2023-06-12] MEDS ORDERED: Benzocaine/Menthol 20%-0.5% Spray 78 GM Cannister TOP PRN (20:33)
[2023-06-12] MEDS ORDERED: Acetaminophen 500 MG Tab PO PRN (20:33)
[2023-06-12] MEDS ORDERED: Lanolin 100% Cream 7 GM Tube TOP PRN (20:33)
[2023-06-12] MEDS ORDERED: Ibuprofen 800 MG Tab PO PRN (20:33)
[2023-06-12] MEDS ORDERED: Bisacodyl 10 MG Supp RECTAL PRN (20:33)
[2023-06-12] MEDS ORDERED: Docusate Sodium 100 MG Cap PO PRN (20:33)
[2023-06-12] MEDS: Acetaminophen 500 MG Tab PO PRN (22:32)
[2023-06-13 03:40] LABS: GROUP B STREP BY PCR NEGATIVE (NEGATIVE)
[2023-06-13 06:28] LABS: HEMATOCRIT 31.2 % (36.0-46.0); HEMOGLOBIN 10.4 g/dL (12.0-16.0)
[2023-06-13] MEDS: Acetaminophen 500 MG Tab PO PRN (08:54)
[2023-06-14 07:19] VITALS: BP 123/74; PULSE 60
== END 2023-06-14 11:45 | disposition home or self-care (01) | DRG 807 ==
LOC: MW.OBCHECK 06:51 → MW.OB 06:52 → MW.OBCHECK 06:59 → UNDOADMOB 07:00 → MW.OB 07:00 → OBSVTOIN 20:45 → MW.OB 22:47
PROVIDERS: ADMIT Obstetrics & Gynecology Obstetrics; ATTEND Obstetrics & Gynecology Obstetrics
PROC: 10E0XZZ Delivery of Products of Conception, External Approach (ICD-10-PCS; principal; 2023-06-12)
PROC: 3E0R3BZ Introduction of Anesthetic Agent into Spinal Canal, Percutaneous Approach (ICD-10-PCS; 2023-06-12)
PROC: 00HU33Z Insertion of Infusion Device into Spinal Canal, Percutaneous Approach (ICD-10-PCS; 2023-06-12)
PROC: 10907ZC Drainage of Amniotic Fluid, Therapeutic from Products of Conception, Via Natural or Artificial Opening (ICD-10-PCS; 2023-06-12)
DX: O60.14X0 Preterm labor third trimester with preterm delivery third trimester, not applicable or unspecified (principal); Z37.0 Single live birth; Z3A.36 36 weeks gestation of pregnancy
CPT/HCPCS: 36415; 51702; 59025; 59409; 80305-QW; 81003; 85014; 85018; 85027; 86592; 86850; 86900; 86901; 87653; A9270-GY; J2300; J2405; J2590; J7120